=== PATIENT | male | born 1995 | race Asian ===

== ENCOUNTER 2020-08-11 14:20 | Emergency (ER) | payer BC, OTHER ==
[2020-08-11] MEDS ORDERED: IBUPROFEN 400 MG TABLET (FP) PO ONE ×2 (14:27→14:48)
[2020-08-11 14:33] VITALS: BP 143/98; PULSE 84; TEMP 99; BMI 25.1
== END 2020-08-11 14:59 | disposition home or self-care (01) ==
LOC: FER 14:20
DX: R51.9 Headache, unspecified (principal)
CPT/HCPCS: 99283-25

== ENCOUNTER 2023-09-26 19:26 | Emergency (ER) | payer OTHER ==
[2023-09-26 19:36] VITALS: BP 115/72; PULSE 82; RESP 17; TEMP 98.2; BMI 25.1
[2023-09-26] MEDS ORDERED: ACETAMINOPHEN 500 MG TABLET (FP) ONE (19:36)
[2023-09-26] MEDS: ACETAMINOPHEN 325 MG TABLET (FP) PO ONE (19:37)
[2023-09-26] MEDS ORDERED: KETOROLAC TROMETHAMINE 30 MG/1 ML VIAL ONE (20:31)
[2023-09-26] MEDS: KETOROLAC TROMETHAMINE 30 MG/1 ML VIAL IM ONE (20:37)
== END 2023-09-26 21:26 | disposition home or self-care (01) ==
LOC: FER 19:26
PROC: 3E0233Z Introduction of Anti-inflammatory into Muscle, Percutaneous Approach (ICD-10-PCS; principal; 2023-09-26)
DX: S40.211A Abrasion of right shoulder, initial encounter (principal); S00.81XA Abrasion of other part of head, initial encounter; S60.511A Abrasion of right hand, initial encounter; V18.0XXA Pedal cycle driver injured in noncollision transport accident in nontraffic accident, initial encounter
CPT/HCPCS: 73030-TC-RT-FY; 73070-TC-RT-FY; 73110-TC-RT-FY; 73130-TC-RT-FY; 99284-25

== ENCOUNTER 2023-09-28 10:23 | Emergency (ER) | payer OTHER ==
[2023-09-28 10:37] VITALS: BP 117/70; PULSE 81; RESP 16; TEMP 98.3; BMI 25.0
[2023-09-28] MEDS ORDERED: SILVER SULFADIAZINE 1% TOP CREAM 50 GM JAR TP ONE (10:37)
[2023-09-28] MEDS: SILVER SULFADIAZINE 1% TOP CREAM 50 GM JAR TP ONE (10:45)
[2023-09-28] MEDS ORDERED: IBUPROFEN 600 MG TABLET (FP) PO ONE (10:48)
[2023-09-28] MEDS: IBUPROFEN 600 MG TABLET (FP) PO ONE (10:50)
== END 2023-09-28 14:35 | disposition home or self-care (01) ==
LOC: SUPCPDRO 10:23 → FER 10:23
DX: S40.211A Abrasion of right shoulder, initial encounter (principal); S00.81XA Abrasion of other part of head, initial encounter; R11.0 Nausea; R21 Rash and other nonspecific skin eruption; V18.0XXA Pedal cycle driver injured in noncollision transport accident in nontraffic accident, initial encounter
CPT/HCPCS: 70486-TC; 73000-TC-RT-FY; 99284-25